=== PATIENT | female | born 1995 | race African-American/Black ===

== ENCOUNTER 2017-03-01 09:32 | Emergency (ER) | payer OTHER, SELFPAY | END 2017-03-01 10:24 | disposition home or self-care (01) | LOC: NAV ERS 09:32 | DX: J06.9 Acute upper respiratory infection, unspecified (principal) | CPT/HCPCS: 99283 ==

== ENCOUNTER 2022-04-27 17:23 | Emergency (ER) | payer BC ==
[~2022-04-27 17:23] MED LIST: Iopamidol 370 76% 100 ML VIAL ONE
[2022-04-27 17:54] LABS: Bilirubin Negative (Negative); Blood, Urine Trace (Negative); Glucose, Urine (Dipstick) Negative (Negative); Ketone, Urine Negative (Negative); Leukocyte Trace (Negative); Nitrite Negative (Negative); Protein, Urine (Dipstick) Negative (Neg-Trace); Specific Gravity, Urine 1.015 (1.005-1.030); Urobilinogen 0.2 mg/dL (Less than 2)
[2022-04-27 18:02] LABS: Clarity SL HAZY (Clear)
[2022-04-27 18:05] LABS: Bacteria/HPF Rare-Few HPF (None Seen); RBC/HPF 0-3 HPF (0-3); Squamous Epithelial 0-3 HPF (0-3); WBC/HPF 0-3 HPF (0-3)
[2022-04-27 19:05] LABS: Pregnancy Test - Urine (BHCG) Negative (Negative); Pregu Control Background? CLEAR/WHITE (CLR/WHITE); Pregu Control Bar Appear? YES (CONTROL BAR); Specific Gravity 1.015 (1.002-1.036)
[2022-04-27 19:11] LABS: #Basophils 0.1 thou/uL (0.0-0.2); #Eosinphils 0.1 thou/uL (0.0-0.7); #Lymphocytes 1.6 thou/uL (1.20-3.40); #Monocytes 0.7 thou/uL (0.11-0.59); #Neutrophils 6.2 thou/uL (1.40-6.50); %Basophils 1.2 % (0.0-1.0); %Lymphocytes 18.2 % (21.0-51.0); %Monocytes 7.6 % (0.0-10.0); Hemoglobin 12.5 g/dL (12.0-16.0); Mean Corpuscular HGB CONC 30.4 g/dL (32.0-36.0); Mean Corpuscular Hemoglobin 23.4 pg (27.0-31.0); Mean Corpuscular Volume 76.8 fl (78.0-98.0); Mean Platelet Volume 9.2 fL (7.4-10.4); Platelet Count 336 10x3/uL (130-400); RBC Distribution Width 16.2 % (11.5-14.5); Red Blood Cell (RBC) Count 5.33 mill/uL (4.20-5.40); White Blood Cell (WBC) Count 8.6 10x3/uL (4.8-10.8)
[2022-04-27 19:19] LABS: Anion Gap 12 mmol/L (10-20); BUN (Urea Nitrogen) 14 mg/dL (7.0-18.7); Calc. Creatinine Clearance 0 mL/min (70-130); Calcium 9.5 mg/dL (7.8-10.44); Carbon Dioxide 24 mmol/L (22-29); Chloride 104 mmol/L (98-107); Estimated GFR 109; Glucose 87 mg/dL (70-105); Potassium 3.8 mmol/L (3.5-5.1); Sodium 136 mmol/L (136-145)
== END 2022-04-27 21:07 | disposition home or self-care (01) ==
LOC: NAV ERS 17:23
DX: R31.9 Hematuria, unspecified (principal)
CPT/HCPCS: 74177; 80048; 81003; 81015; 81025; 85025; Q9967

== ENCOUNTER 2022-10-23 18:46 | Emergency (ER) | payer BC, OTHER ==
[2022-10-23] MEDS ORDERED: Ondansetron PF 4 MG/2 ML Vial ONE (19:17)
[2022-10-23] MEDS ORDERED: Acetaminophen 500 MG TAB ONE (19:17)
[2022-10-23] MEDS ORDERED: Sodium Chloride 0.9% 1,000 ML ONE (19:38)
[2022-10-23 19:39] LABS: #Basophils 0.1 thou/uL (0.0-0.2); #Eosinphils 0.1 thou/uL (0.0-0.7); #Lymphocytes 1.9 thou/uL (1.20-3.40); #Monocytes 0.8 thou/uL (0.11-0.59); #Neutrophils 9.7 thou/uL (1.40-6.50); %Basophils 0.4 % (0.0-1.0); %Eosinophils 0.6 % (0.0-10.0); %Lymphocytes 15.5 % (21.0-51.0); %Neutrophils 77.4 % (42.0-75.0); Bilirubin Negative (Negative); Blood, Urine Trace (Negative); Clarity Clear (Clear); Glucose, Urine (Dipstick) Negative (Negative); Hematocrit 35.9 % (36.0-47.0); Hemoglobin 11.4 g/dL (12.0-16.0); Ketone, Urine > or equal to 80 mg/dL (Negative); Leukocyte Trace (Negative); Mean Corpuscular HGB CONC 31.8 g/dL (32.0-36.0); Mean Corpuscular Hemoglobin 23.5 pg (27.0-31.0); Mean Corpuscular Volume 74.1 fl (78.0-98.0); Mean Platelet Volume 10.2 fL (7.4-10.4); Nitrite Negative (Negative); Platelet Count 293 10x3/uL (130-400); Protein, Urine (Dipstick) Negative (Neg-Trace); Red Blood Cell (RBC) Count 4.84 mill/uL (4.20-5.40); Urobilinogen 0.2 mg/dL (Less than 2); White Blood Cell (WBC) Count 12.5 10x3/uL (4.8-10.8)
[2022-10-23 19:44] LABS: Bacteria/HPF 1+ HPF (None Seen); CAUTI Indications for Culture Acute Hematuria; RBC/HPF 0-3 HPF (0-3)
[2022-10-23 19:45] LABS: Urine Culture Reflex No No
[2022-10-23 19:58] LABS: ALT (SGPT) 13 U/L (8-55); AST (SGOT) 12 U/L (5-34); Albumin 4.1 g/dL (3.5-5.0); Alkaline Phosphatase 41 U/L (40-110); Anion Gap 16 mmol/L (10-20); BUN (Urea Nitrogen) 6 mg/dL (7.0-18.7); Bilirubin, Total 0.6 mg/dL (0.2-1.2); Calc. Creatinine Clearance 0 mL/min (70-130); Calcium 9.5 mg/dL (7.8-10.44); Carbon Dioxide 19 mmol/L (22-29); Chloride 105 mmol/L (98-107); Estimated GFR 124; Globulin 3.6 g/dL (2.4-3.5); Glucose 77 mg/dL (70-105); Lipase 14 U/L (8-78); Potassium 3.5 mmol/L (3.5-5.1); Protein, Total 7.7 g/dL (6.0-8.3); Sodium 136 mmol/L (136-145)
[2022-10-23] MEDS ORDERED: Cephalexin 250 MG CAP ONE (20:06)
== END 2022-10-23 20:57 | disposition home or self-care (01) ==
LOC: NAV ERS 18:46
DX: O23.41 Unspecified infection of urinary tract in pregnancy, first trimester (principal); N39.0 Urinary tract infection, site not specified; Z3A.10 10 weeks gestation of pregnancy
CPT/HCPCS: 80053; 81001; 83690; 85025; 87086; 96361; 96374; J2405; J7050

== ENCOUNTER 2022-11-05 09:49 | Emergency (ER) | payer BC, OTHER | END 2022-11-05 10:39 | disposition home or self-care (01) | LOC: NAV ERS 09:49 | DX: O99.611 Diseases of the digestive system complicating pregnancy, first trimester (principal); K59.00 Constipation, unspecified; Z3A.12 12 weeks gestation of pregnancy | CPT/HCPCS: 99283 ==

== ENCOUNTER 2024-03-20 17:37 | Emergency (ER) | payer BC ==
[2024-03-20] MEDS ORDERED: Acetaminophen 500 MG TAB ONE (17:41)
== END 2024-03-20 18:38 | disposition home or self-care (01) ==
LOC: NAV ERS 17:37
DX: J10.1 Influenza due to other identified influenza virus with other respiratory manifestations (principal)
CPT/HCPCS: 87428; 99283

== ENCOUNTER 2025-01-18 11:56 | Emergency (ER) | payer BC | END 2025-01-18 13:30 | disposition home or self-care (01) | LOC: NAV ERS 11:56 | DX: S80.01XA Contusion of right knee, initial encounter (principal); V43.92XA Unspecified car occupant injured in collision with other type car in traffic accident, initial encounter | CPT/HCPCS: 99284 ==